=== PATIENT | female | born 1965 | race Caucasian/White ===

== ENCOUNTER 2018-10-21 11:41 | Day surgery (SDC) | payer BC ==
[~2018-10-21 11:41] MED LIST: ACETAMINOPHEN 1,000 MG/100 ML BTL IV ONE; CEFAZOLIN 2 Gram 2 GM/50 ML BAG IVPB ONE; MORPHINE SULFATE 4 MG/ML VIAL ONE
[2018-10-21] MEDS ORDERED: SEVOFLURANE 250 ML INH ONE (11:42)
[2018-10-21] MEDS ORDERED: DIPHENHYDRAMINE HCL 50 MG/ML VIAL IVP ONE (11:42)
[2018-10-21] MEDS ORDERED: PROPOFOL 10 MG/ML VIAL IV ONE (11:42)
[2018-10-21] MEDS ORDERED: MIDAZOLAM HCL 2MG/2ML VIAL IV ONE (11:42)
[2018-10-21] MEDS ORDERED: LIDOCAINE 2% MDV (20MG/ML) 20ML VIAL IV ONE (11:42)
[2018-10-21] MEDS ORDERED: KETOROLAC 30 MG/ML VIAL IVP ONE (11:42)
[2018-10-21] MEDS ORDERED: MORPHINE SULFATE 5 MG/ML PFS IVP ONE (14:50)
[2018-10-21] MEDS ORDERED: METHYLPREDNISOLONE 40MG/VIAL IM ONE (14:50)
[2018-10-21] MEDS ORDERED: BUPIVACAINE 0.5% W/EPI MPF 30 ML VIAL SQ ONE (14:50)
--- NOTE | 2018-10-22 08:50 | Operative Note ---
DATE OF SURGERY: 10/21/2018 PREOPERATIVE DIAGNOSIS: Internal derangement of the right knee. POSTOPERATIVE DIAGNOSES: 1. Grade 3 chondromalacia of the patella. 2. 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 3. Radial flap tear involving the posterior horn of the medial meniscus. OPERATION: 1. Right knee arthroscopy with partial medial meniscectomy. 2. Right knee arthroscopy with chondroplasty of the patella and medial femoral condyle. Staff Surgeon: Ahmet Banks MD Anesthesia: General. Preparation: Chloraprep. Individual Considerations: None. PROCEDURE: The patient was taken to the operating room and placed supine on the operating room table. The patient had a successful induction with general anesthetic. The right lower extremity was prepped and draped in the usual fashion. The patient had a superolateral inflow cannula placed. Skin was infiltrated with 0.5% Marcaine with epinephrine prior. The knee was then inflated with normal saline. An inferomedial and an inferolateral portal were made in a similar fashion. The arthroscope was introduced through the inferolateral portal up into the pouch. Patellofemoral joint showed grade 3 changes at the patella centrally. This was smoothed with a shaver. Normal tracking. No loose bodies were seen in the pouch or either gutter. Medially, she had small grade 3 change on the medial femoral condyle right along the medial ridge next to the notch, which was smoothed with a shaver. I centered about 45 degrees, about the size of a quarter to a nickel. She obviously also had a radial flap tear involving the posterior horn of the medial meniscus. Basically, debrided out most of the posterior horn to a stable rim with a basket forceps and a shaver. I was able to leave the medial and anterior horns. Tibial plateau was intact. Cruciates were normal. Lateral compartment structures were normal. The knee was then irrigated out with saline to remove loose floating debris. Portals were closed with sudhir, and 20 mL of 0.5% Marcaine with epinephrine along with 4 mg of morphine and 40 mg of Depo-Medrol were injected into the knee. A sterile bulky compressive dressing was applied. The patient tolerated procedure well. Needle and sponge counts were correct. Estimated blood loss was minimal. She was taken back to recovery in good condition. There were no complications. CYRUS
== END 2018-10-21 15:56 | disposition home or self-care (01) ==
LOC: SUR 11:41
PROVIDERS: ATTEND Orthopaedic Surgery
DX: S83.241A Other tear of medial meniscus, current injury, right knee, initial encounter (principal); M94.261 Chondromalacia, right knee; F98.8 Other specified behavioral and emotional disorders with onset usually occurring in childhood and adolescence
CPT/HCPCS: 29881; 01400; J1885; J0690; J2270 ×2; J1030; J1200